=== PATIENT | male | born 1960 | race African-American/Black ===

== ENCOUNTER 2018-11-02 16:36 | Emergency (ER) | payer MEDICAID ==
[~2018-11-02] VITALS: Ht 172.7 cm; Wt 89.0 kg
[2018-11-02] MEDS ORDERED: HYDROCODONE/ACETAMINOPHEN 5/325MG TABLET PO ONE (20:45)
[2018-11-02] MEDS ORDERED: METHYLPREDNISOLONE SOD SUCC 125 MG/2 ML VIAL IM ONE (20:45)
[2018-11-02 21:18] VITALS: BP 138/72
== END 2018-11-02 21:21 | disposition home or self-care (01) ==
LOC: ER 16:36
DX: M10.9 Gout, unspecified (principal)
CPT/HCPCS: 96372; 99283; J2930

== ENCOUNTER 2019-01-13 19:03 | Emergency (ER) | payer MEDICAID ==
[~2019-01-13] VITALS: Ht 170.2 cm; Wt 86.0 kg
[2019-01-13] MEDS ORDERED: HYDROCODONE/ACETAMINOPHEN 5/325MG TABLET PO ONE (21:15)
[2019-01-13] MEDS ORDERED: METHYLPREDNISOLONE SOD SUCC 125 MG/2 ML VIAL IM SCH (21:15)
[2019-01-13 22:21] VITALS: BP 112/71
== END 2019-01-13 22:22 | disposition home or self-care (01) ==
LOC: ER 19:03
DX: M25.572 Pain in left ankle and joints of left foot (principal)
CPT/HCPCS: 96372; 99283; J2930; Z7610